=== PATIENT | female | born 1940 | race Caucasian/White ===

== ENCOUNTER 2020-01-16 11:27 | Emergency (ER) | payer MEDICARE, BC ==
[~2020-01-16] VITALS: Ht 160 cm; Wt 70.0 kg
[~2020-01-16 11:27] MED LIST: ANASTROZOLE1 MG PO; ARIMIDEX1 MG PO; CELEXA40 M1; COZAAR100 MG PO; EFFEXOR XR75 MG PO; EFFEXOR75 MG PO; FLONASE NASAL50 MCG; IMITREX100 M1 PO; IPRATROPIUM0.03 %; KLOR-CON 1010 ME1 PO; KLOR-CON20 MEQ PO; LATISSE EX; LOFIBRA67 MG PO; LOSARTAN POT100 MG PO; MAXIDE1 COMBO PO; MEDDOSEPAK OR; MIACALCIN200 MG/ACT; POM IJ; POM SC; POT CL MICRO20 MEQ PO; PREVACID30 M3 PO; SIMVASTATIN20 MG PO; TRAZODONE HCL50 MG PO; TRIAMTERENE/HCTZ; TRIAMTERENE/HYD1 CAP PO
[2020-01-16] MEDS ORDERED: K-DUR/KLOR-CON20 MEQ PO (11:41)
[2020-01-16] MEDS ORDERED: EFFEXOR XR150 MG PO (11:42)
[2020-01-16] MEDS ORDERED: DITROPAN XL10 MG PO (11:44)
[2020-01-16] MEDS ORDERED: LEVOTHYROXIN50 MCG PO (11:45)
[2020-01-16] MEDS ORDERED: IPRATROPIUM BR0.03 % NAB (11:47)
[2020-01-16] MEDS ORDERED: B COMPLE2 PO (11:48)
[2020-01-16] MEDS ORDERED: PRESERVISION PO (11:48)
[2020-01-16] MEDS ORDERED: NIACIN500 M4 PO (11:49)
[2020-01-16] MEDS ORDERED: BIOTIN EXTR10000 MCG PO (11:49)
[2020-01-16 13:00] VITALS: BP 143/73
== END 2020-01-16 13:00 | disposition home or self-care (01) ==
LOC: ED 11:27
DX: M25.561 Pain in right knee (principal); Z96.651 Presence of right artificial knee joint

== ENCOUNTER 2021-03-07 15:00 | Emergency (ER) | payer MEDICARE, BC ==
[~2021-03-07 15:00] MED LIST changes: +B COMPLE2 PO; +BIOTIN EXTR10000 MCG PO; +DITROPAN XL10 MG PO; +EFFEXOR XR150 MG PO; +IPRATROPIUM BR0.03 % NAB; +K-DUR/KLOR-CON20 MEQ PO; +LEVOTHYROXIN50 MCG PO; +NIACIN500 M4 PO; +PRESERVISION PO
== END 2021-03-07 16:59 | disposition left against medical advice (07) ==
LOC: ED 15:00 → LWOBS 16:59
DX: Z53.21 Procedure and treatment not carried out due to patient leaving prior to being seen by health care provider (principal)

== ENCOUNTER 2021-05-14 18:59 | Emergency (ER) | payer MEDICARE, BC ==
[~2021-05-14] VITALS: Ht 160 cm; Wt 65.0 kg
[2021-05-14] VITALS (7 sets, daily range): BP systolic 123–173; BP diastolic 77–102
[2021-05-14] MEDS ORDERED: D3 ADULT1000 UNIT PO (20:07)
== END 2021-05-14 21:33 | disposition home or self-care (01) ==
LOC: ED 18:59
DX: S00.03XA Contusion of scalp, initial encounter (principal); W01.0XXA Fall on same level from slipping, tripping and stumbling without subsequent striking against object, initial encounter; Y93.41 Activity, dancing

== ENCOUNTER 2024-03-14 10:11 | Emergency (ER) | payer MEDICARE, BC ==
[2024-03-14] VITALS (9 sets, daily range): BP systolic 140–170; BP diastolic 74–106
[~2024-03-14] VITALS: Ht 160 cm; Wt 61.4 kg
[~2024-03-14 10:11] MED LIST changes: +D3 ADULT1000 UNIT PO
[2024-03-14] MEDS ORDERED: IBUPROFEN 200 MG/TAB PO ONE (10:25)
== END 2024-03-14 13:19 | disposition home or self-care (01) ==
LOC: ED 10:11
DX: S00.83XA Contusion of other part of head, initial encounter (principal); W01.0XXA Fall on same level from slipping, tripping and stumbling without subsequent striking against object, initial encounter; Y92.009 Unspecified place in unspecified non-institutional (private) residence as the place of occurrence of the external cause